=== PATIENT | female | born 2000 | race Caucasian/White ===

== ENCOUNTER 2024-06-21 08:22 | Day surgery (SDC) | payer MEDICAID, SELFPAY ==
[2024-06-21] VITALS (30 sets, daily range): BP systolic 98–127; BP diastolic 47–76; PULSE 50–72; RESP 12–21; TEMP 36.2–36.5; O2SAT 97–100; BMI 24.5
--- NOTE | 2024-06-21 08:51 | W.ANESPRE ---
General Info Date of Service Date Performed: 06/21/24 Height: 5 ft 2 in Weight: 61 kg Body Mass Index (BMI): 24.5 Surgical Procedure: Operation Date: 06/21/24 09:25 Proposed Procedure Side Surgeon p Cystoscopy, right Retrograde pyelogram, right Ureteroscopy with holmium laser lithotripsy Right Tim Kaur MD Meds Allergies and Home Medications Allergies Allergy/AdvReac Type Severity Reaction Status Date / Time No Known Allergies Allergy Verified 06/21/24 08:48 Home Medication ?Medication ?Instructions ?Recorded docosahexaenoic acid 200 mg 200 mg PO DAILY 06/20/24 capsule ( DHA) ibuprofen 200 mg tablet 200 mg PO Q6H PRN 06/20/24 Current Visit Medications: Current Medications Generic Name Dose Route Start Last Admin Trade Name Freq PRN Reason Stop Dose Admin Ringer's Solution 1,000 mls @ 80 mls/hr 06/21/24 06:00 IV 06/21/24 23:59 INFUSION CHRISTINA Cefazolin Sodium/Dextrose 2 gm in 50 mls @ 100 mls/hr 06/21/24 06:00 Ancef Duplex IVPB 06/21/24 23:59 PREOP CHRISTINA IV Miscellaneous Supplies 1 each 06/21/24 06:00 Iv Access IV 06/21/24 23:59 DIRECTED CHRISTINA Sodium Chloride 0 ml 06/21/24 06:00 Normal Saline Flush 10 Ml Syr IV 06/21/24 23:59 PRN PRN Sodium Chloride 0 ml 06/21/24 06:00 Normal Saline 10 Ml Vial IJ 06/21/24 23:59 DIRECTED PRN Sterile Water 0 ml 06/21/24 06:00 Water,Injection,Sterile 10 Ml Vial IJ 06/21/24 23:59 DIRECTED PRN PFSH Active Problems Active Problems: Problem Status Onset Code Right ureteral calculus Acute N20.1 Medical History Medical History Patellar tracking disorder Anemia Migraine Surgical History Surgical History History of colposcopy Tobacco Smoking/Tobacco Use Status: Former Tobacco Use Alcohol Alcohol Intake: current Alcohol intake frequency: holidays/special occasions only Substance Use Substance use: Never Substance use type: does not use Vital Signs and Lab Results Vital Signs Most Recent Vital Signs in EMR: Most Recent Vital Signs Temp Pulse Resp BP Pulse Ox 36.3 C L 65 16 114/76 100 06/21/24 08:37 06/21/24 08:37 06/21/24 08:37 06/21/24 08:37 06/21/24 08:37 Lab Results Blood Type / Crossmatch: No Data to Display Complete Blood Count: No Data to Display Complete Metabolic Panel: No Data to Display Liver Function Panel: No Data to Display Coagulation Panel: No Data to Display Cardiac Panel: No Data to Display Arterial Blood Gas: No Data to Display Venous Blood Gas: No Data to Display Pancreas Panel: No Data to Display Thyroid Panel: No Data to Display Infectious Disease: No Data to Display Blood Cultures: No Data to Display Toxicology Panel: No Data to Display Panel: No Data to Display Anesthesia Assessment and Plan Anesthesia History Personal History: No History of Anesthesia Complications Family History: No Family History of Anesthesia Complications Exercise Tolerance Exercise Tolerance: Metabolic Equivalents>4 Pertinent Negatives Pertinent Negatives: No Symptoms of GERD, No Major Cardiovascular Symptoms or Complaints and No Major Pulmonary Symptoms or Complaints Cardiac & Pulmonary Exam Cardiac Exam: Normal S1/S2 Heart Sounds Pulmonary Exam: Clear Bilateral Breath Sounds Implantable Cardiac Device Does patient have a Pacemaker or an ICD?: No Airway Exam Known Difficult Airway: No Mallampati Class: 1 Mouth Opening: Normal (> 3cm) Thyromental Distance: Greater than 3 cm Neck Range of Motion: Full ROM Neck Circumference: Normal Teeth Condition: Normal Dentition ASA Classification ASA Score: ASA 2 Emergency Case?: No NPO Status NPO Status: NPO Clears >2 hours, Solids >8 hours Status Status: Negative HCG Anesthesia Plan Resuscitation Status: Full Code Anesthesia Technique: General Anesthesia Airway Planned: LMA Monitors Used: Standard Monitors
--- NOTE | 2024-06-21 08:54 | HPE_ITS ---
Date of service: 06/21/24 Time of Service: 09:11 Assessment and Plan Assessment and plan (1) Right ureteral calculus: Status: Acute Assessment and plan: Her stone has not progressed with conservative management. We will move ahead with ureteroscopic treatment of her ureteral stone. History of Present Illness History of Present Illness Chief Complaint: Right ureteral stone Narrative: This is a 24-year-old woman who is referred by the providers at [facility]. She initially presented with urinary frequency, urgency and some right sided discomfort. She was diagnosed as having a urinary tract infection and she completed her antibiotics. Her symptoms did not completely resolve however. She was then evaluated with a CT scan which showed a right distal ureteral stone. She tells me that she has right back and groin pain that can be associated with urination, but can also be present at other times. She is not seeing any gross hematuria. She feels the need to void but does not feel like she is emptying her bladder. She has some nausea but no vomiting. She describes a fever initially when she first presented a few weeks ago, but no fevers recently. The patient herself has no history of kidney stones, but that she does have a family history of stone disease. The patient has no personal diagnosis of gout or hyperparathyroidism. She has not had any prior issues with anesthesia. She is not on any anticoagulants. She is about 4 months out from a vaginal delivery. She is breast-feeding her young son. Review of Systems Narrative: No fevers or chills No vision change or dysphasia No diabetes or thyroiddysfunction No shortness of breath, cough or hemoptysis No chest pain or palpitations Nausea. No hepatitis, ulcers, jaundice No seizures, strokes or peripheral neuropathy Anemia following childbirth. She no longer requires iron supplementation. No bleeding disorders No gout PFSH All Active Problems Right ureteral calculus (Acute) Medical History Patellar tracking disorder Anemia Migraine Surgical History History of colposcopy Social History Smoking/Tobacco Use Status: Former Tobacco Use Quit Date: 03/22/24 Smoking risk assessment performed?: Yes Alcohol Intake: current Alcohol Intake frequency: holidays/special occasions only Drug use: Never Substance use type: does not use Housing: house Do you feel safe at home: Yes Do you feel safe in your relationship?: Yes Meds Allergies and Home Medications Allergies Allergy/AdvReac Type Severity Reaction Status Date / Time No Known Allergies Allergy Verified 06/21/24 08:48 Home Medications ?Medication ?Instructions ?Recorded ?Confirmed ?Type docosahexaenoic acid 200 mg 200 mg PO DAILY 06/20/24 06/21/24 History capsule ( DHA) ibuprofen 200 mg tablet 200 mg PO Q6H PRN 06/20/24 06/21/24 History Exam Const General: cooperative and no acute distress Neck Neck: supple Resp Effort & Inspection: normal respiratory effort Auscultation: clear to auscultation bilaterally Cardio Rate: regular rate Rhythm: regular rhythm GI Palpation: soft and no masses Neuro General: patient alert, patient awake and patient oriented x3 Results Last Vital Signs Temp 36.3 C L 06/21/24 08:37 Pulse 65 06/21/24 08:37 Resp 16 06/21/24 08:37 BP 114/76 06/21/24 08:37 Pulse Ox 100 06/21/24 08:37 Time Spent Time spent with Patient: <40 minutes Time was spent: other
[2024-06-21] MEDS: Lactated Ringers 1,000 ML 80 ML IV (09:29)
[2024-06-21] MEDS: ceFAZolin 2 GM/50 ML BAG IVPB (10:04)
[2024-06-21] MEDS: Lidocaine 2% Jelly 6 ML SYR (10:23)
[2024-06-21] MEDS: Omnipaque 300 MG/ML 50 ML BTL (10:50)
--- NOTE | 2024-06-21 11:00 | DI.RAD_ITS ---
Exam(s) XR RETROGRADE IN OR EXAM: XR RETROGRADE IN OR CLINICAL HISTORY: right renal stone. TECHNIQUE: Fluoroscopy was provided for the referring physician for guidance with performing retrogr maryann procedure. COMPARISON: CT CT ABD/PELVIS W/ CONTRAST from 06/15/2024 FINDINGS: Please see procedure note for details. Fluoro time: 15.3 seconds RADIATION DOSE DELIVERED: Soraidar=1.86 mGy
--- NOTE | 2024-06-21 11:00 | W.PM.DSUDISC ---
Date of service: 06/21/24 Discharge Plan Disposition Patient Disposition: Home Discharge Details Reason For Visit: ureteroscopy Attending Provider: Tim Kaur Primary Care Provider: Trenton Frias Home Meds and New Rx's Prescriptions: No Action ibuprofen 200 mg tablet 200 mg PO Q6H PRN DHA 200 mg capsule 200 mg PO DAILY Discharge Instructions Additional Instructions: no need to strain urine you have a ureteral stent in place - it is not unusual to have pain when you urinate , urinate more frequently than usual or have blood in the urine for as long as the stent is in place my office will contact you to arrange for a cystoscopy and stent removal - this can be done either in the office with you awake or in the operating room under anesthesia Discharge Orders Discharge Orders: Discharge Order (Routine); Ordered 06/21/24 Ordered By: Tim Kaur DS: Diagnosis Discharge Diagnosis (1) Right ureteral calculus: Status: Acute
--- NOTE | 2024-06-21 11:07 | ROE_ITS ---
Operative Note Operative Note PRE-OP DIAGNOSIS: Right ureteral stone POST-OP DIAGNOSIS: same PROCEDURE: cystoscopy, right retrograde pyelogram, right ureteroscopy, insert right ureteral stent SURGEON: Tim Kaur ANESTHESIA TYPE: Local By Surgeon and General LMA/ETT Refer to Anesthesia Record ESTIMATED BLOOD LOSS: 5 PATHOLOGY: none sent COMPLICATIONS: None Patient was transported to: PACU Patient's condition: stable Implants: 6 [place] by 22 to 30 cm right ureteral stent Indications: This is a 24-year-old woman who is referred by providers up at [facility]. She initially presented with lower abdominal discomfort, frequency and urgency. She was diagnosed with a urinary tract infection and completed her antibiotics. Follow-up urine cultures were unremarkable, but her symptoms persisted. She was then evaluated with a CT scan which demonstrated a 6 mm right distal ureteral stone. She has not passed the stone as far as she knows, and her symptoms persist after 2 weeks of conservative management. She presents now for ureteroscopy. Findings: Edematous right ureteral orifice but no stone remained at distal ureter - suspect very recent passage Procedure Description: The patient was given IV antibiotics and brought to the operating room on 06/21/2024. After successful induction of general anesthesia, she was placed in the dorsal lithotomy position. Her genitalia was prepped and draped. 2% Xylocaine jelly was then instilled into the urethra. The 22 [place] rigid cystoscope was passed through the urethra into the bladder. The bladder was inspected using a 30 degree lens. The left ureteral orifice appeared normal with clear urine coming from the left side. The right orifice was markedly edematous. I was able to cannulate the right ureteral orifice with a 5 [place] access catheter and passed a guidewire through the lumen of the catheter up the remainder of the ureter. I then passed a semirigid ureteroscope through the urethra into the bladder. I advanced to ureteroscope into the distal ureter. There was a significant narrowing there, but I did not visualize a discrete stone. Once I passed the narrowed area of the ureter, I was able to advance the scope up to the renal pelvis. Again, I saw no stone as I withdrew the scope down the ureter. I then passed a dual-lumen catheter over the indwelling wire and performed a retrograde pyelogram by injecting Omnipaque through the second port of the dual-lumen catheter. We were able to outline the calyces in the kidney. I passed a second wire through the dual-lumen catheter and removed the catheter. We chose one of the wires as a working wire and the other as a safety wire. I passed a flexible ureteroscope over the working wire and advanced the scope up to the renal pelvis. We inspected each of the calyces. No free-floating stone particles were identified. They did appear to be some stone formation and most of the renal papilla. We again inspected the ureter as we withdrew the ureteroscope and again did not see any residual ureteral stone. We suspect that she passed her stone quite recently as the orifice was markedly edematous. I then passed a 6 [place] variable length stent over the safety wire. The proximal end of the stent was curled in the renal pelvis and the distal end was curled within the bladder. The positioning of the stent was confirmed both fluoroscopically and cystoscopically. The patient tolerated this procedure well with no complications. Date of Procedure: 06/21/24
[2024-06-21] MEDS: fentaNYL 100 MCG/2 ML VIAL IVP (11:45)
--- NOTE | 2024-06-21 12:33 | W.ANESPOSTOP ---
Postoperative Evaluation Date, Time and Location Date Performed: 06/21/24 Time Performed: 12:34 Patient Location: Day Surgery Unit Vital Signs Most Recent Imported Vital Signs: Most Recent Vital Signs Temp Pulse Resp BP Pulse Ox 36.4 C L 57 L 16 112/67 100 06/21/24 12:09 06/21/24 12:09 06/21/24 12:09 06/21/24 12:09 06/21/24 12:09 Pain Score Most Recent Pain Score: Most Recent Pain Score Pain Level 4 06/21/24 12:09 Assessment Mental Status: Awake (Alert & Oriented to Patient Baseline) Airway and Respiratory Function: Patent airway with normal (patient baseline) respiratory exam Cardiovascular Function: Hemodynamically Stable Hydration Status: Adequately Hydrated Nausea & Vomiting: No Nausea or Vomiting Pain: Pain is tolerable per patient Peripheral Nerve Block: Patient did not receive a nerve block
== END 2024-06-21 13:19 | disposition home or self-care (01) ==
PROVIDERS: Visit Provider Urology
PROC: (CPT 52332; principal; 2024-06-21 09:15)
DX: N20.1 Calculus of ureter (principal)
CPT/HCPCS: 52332; 81025; 74420; J0690; J1100; J1885; J2250; J2405; J2704; J3010; Q9967